=== PATIENT | female | born 1995 | race African-American/Black ===

== ENCOUNTER 2016-08-21 23:52 | Inpatient (IN) | payer SELFPAY ==
[~2016-08-21] VITALS: Ht 162.6 cm; Wt 74.8 kg
[2016-08-22] MEDS ORDERED: LACTATED RINGERS 1,000 ML IV SCH (00:02)
[2016-08-22] MEDS ORDERED: LIDOCAINE HCL 1% 20ML VIAL (Pyxis) INJ INFIL SCH (00:15)
[2016-08-22] MEDS ORDERED: NALOXONE HCL 0.4 MG/ML 1ML VIAL IM PRN (00:15)
[2016-08-22] MEDS ORDERED: CARBOPROST TROMETHAMINE 250 MCG/ML AMPUL IM PRN (00:15)
[2016-08-22] MEDS ORDERED: METHYLERGONOVINE MALEATE 0.2 MG/ML IM PRN ×2 (00:15→01:00)
[2016-08-22] MEDS: DEXT 5%/LR + PITOCIN 20UNITS/L 1,000 ML IV SCH ×2 (00:49→01:45)
[2016-08-22] MEDS ORDERED: DEXT 5%/LR + PITOCIN 20UNITS/L 1,000 ML IV SCH (00:59)
[2016-08-22] MEDS ORDERED: ACETAMINOPHEN WITH CODEINE 300/30MG TABLET PO PRN (01:00)
[2016-08-22] MEDS ORDERED: GLYCERIN/WITCH HAZEL LEAF MEDICATED PAD TOP PRN (01:00)
[2016-08-22] MEDS ORDERED: IBUPROFEN 800MG TABLET PO PRN (01:00)
[2016-08-22] MEDS ORDERED: LANOLIN OINT 0.25 GM TUBE TOP PRN (01:00)
[2016-08-22] MEDS ORDERED: IBUPROFEN 400MG TABLET PO PRN (01:00)
[2016-08-22] MEDS ORDERED: RHO(D) IMMUNE GLOBULIN 300 MCG/SYR IM PRN (01:00)
[2016-08-22 01:03] LABS: BASOPHILS % 0.5 % (0.0-2.0); EOSINOPHILS % 1.6 % (0.0-5.0); HEMATOCRIT. 32.1 % (36.0-48.0); HEMOGLOBIN. 10.8 g/dL (12.0-16.0); INR 0.9; LYMPHOCYTES % 25.1 % (20.0-50.0); MEAN CORPUSCULAR HEMOGLOBIN 28.3 pg (28.0-32.0); MEAN CORPUSCULAR HGB CONC 33.8 g/dL (31.0-37.0); MEAN CORPUSCULAR VOLUME 83.8 fL (81.0-99.0); MEAN PLATELET VOLUME 8.1 fl (7.4-10.4); MONOCYTES % 7.2 % (2.0-8.0); NEUTROPHILS % 65.6 % (40.0-76.0); PARTIAL THROMBOPLASTIN TIME 28.5 sec (24.0-34.0); PLATELET 182 x1000/uL (130-400); PROTHROMBIN TIME 9.4 sec; RED BLOOD CELL COUNT 3.83 mill/uL (4.2-5.4); RED CELL DISTRIBUTION WIDTH 15.2 % (11.6-14.6); WHITE BLOOD COUNT 5.7 x1000/uL (4.5-11.0)
[2016-08-22 02:00] VITALS: BP 128/76
[2016-08-22 06:00] VITALS: BP 113/61
[2016-08-22 06:52] LABS: HEPATITIS B SURFACE ANTIGEN NEGATIVE; RUBELLA IGG 105.6 IU/mL (4.99-10)
[2016-08-22 07:13] LABS: *AMPHETAMINES SCREEN URINE NEGATIVE (NEGATIVE); *BARBITURATES SCREEN URINE NEGATIVE (NEGATIVE); *BENZODIAZEPINES SCREEN URINE NEGATIVE (NEGATIVE); CANNABINOID URINE SCREEN NEGATIVE (NEGATIVE); ECSTASY MDMA SCREEN URINE NEGATIVE (NEGATIVE); METHADONE URINE SCREEN NEGATIVE (NEGATIVE); OPIATES URINE SCREEN NEGATIVE (NEGATIVE); PHENCYCLIDINE URINE SCREEN NEGATIVE (NEGATIVE)
[2016-08-22 07:35] VITALS: BP 100/67
[2016-08-22 08:24] LABS: *COCAINE SCREEN URINE PRESUMTIVE POSITIVE (NEGATIVE)
[2016-08-22] MEDS ORDERED: PRENATAL VIT/FE FUMARATE/FA TABLET PO SCH (09:00)
[2016-08-22 09:06] LABS: BASOPHILS % 0.4 % (0.0-2.0); EOSINOPHILS % 1.6 % (0.0-5.0); HEMATOCRIT. 30.8 % (36.0-48.0); HEMOGLOBIN. 10.3 g/dL (12.0-16.0); LYMPHOCYTES % 26.2 % (20.0-50.0); MEAN CORPUSCULAR HEMOGLOBIN 28.2 pg (28.0-32.0); MEAN CORPUSCULAR HGB CONC 33.5 g/dL (31.0-37.0); MEAN CORPUSCULAR VOLUME 84.1 fL (81.0-99.0); MONOCYTES % 8.7 % (2.0-8.0); NEUTROPHILS % 63.1 % (40.0-76.0); PLATELET 154 x1000/uL (130-400); RED BLOOD CELL COUNT 3.66 mill/uL (4.2-5.4); WHITE BLOOD COUNT 6.4 x1000/uL (4.5-11.0)
[2016-08-22 10:34] LABS: GLUCOSE URINE 2+ (NEGATIVE); KETONES URINE NEGATIVE (NEGATIVE); LEUKOCYTE ESTERASE URINE TRACE (NEGATIVE); NITRITE URINE NEGATIVE (NEGATIVE); OCCULT BLOOD URINE 3+ (NEGATIVE); PROTEIN URINE 1+ (NEGATIVE); SPECIFIC GRAVITY URINE 1.008 (1.005-1.030); UROBILINOGEN URINE 0.2 E.U./dL (0.2-1.0)
[2016-08-22 10:36] LABS: CLARITY URINE CLOUDY (CLEAR); COLOR URINE BLOODY (YELLOW)
[2016-08-22 10:37] LABS: RBC URINE TNTC /hpf (0-2)
[2016-08-22 10:41] LABS: WBC URINE 0-2 /hpf (0-2)
[2016-08-22 10:43] LABS: BACTERIA URINE TRACE; SQUAMOUS EPITHELIAL CELL URINE NONE SEEN /lpf (RARE/1+)
[2016-08-22] MEDS ORDERED: PENICILLIN G BENZATHINE 2,400,000 UNITS/4ML SYR IM NR ×2 (13:11→14:00)
[2016-08-22] MEDS ORDERED: DOCUSATE SODIUM 100MG CAPSULE PO SCH (21:00)
[2016-08-23] MEDS ORDERED: FERROUS SULFATE 325MG TABLET PO SCH (12:10)
[2016-08-29 10:08] LABS: COCAINE CONFIRMATION URINE Positive (.)
== END 2016-08-22 13:20 | disposition left against medical advice (07) | DRG 561 ==
LOC: OBSVTOIN 23:52 → L&D 23:52 → 8EST 08-22 02:00
PROVIDERS: ADMIT Obstetrics & Gynecology; ATTEND Obstetrics & Gynecology
DX: Z39.0 Encounter for care and examination of mother immediately after delivery (principal); D62 Acute posthemorrhagic anemia; Z53.21 Procedure and treatment not carried out due to patient leaving prior to being seen by health care provider; A53.0 Latent syphilis, unspecified as early or late
CPT/HCPCS: 36415; 36430; 80305; 80353; 81001; 85025; 85610; 85730; 86592; 86593; 86703; 86762; 86780; 86850; 86900; 87340; J0561; J2590; J7120

== ENCOUNTER 2024-09-12 14:16 | Emergency (ER) | payer MEDICAID ==
[~2024-09-12] VITALS: Ht 165.1 cm; Wt 80.0 kg
[2024-09-12 14:35] VITALS: TEMP 36.8; O2SAT 99
[2024-09-12] MEDS ORDERED: LEVO750T68 MT (16:24)
[2024-09-12] MEDS ORDERED: METR-167 MT (16:24)
[2024-09-12 16:58] VITALS: BP 121/80; PULSE 59; RESP 16; O2SAT 100
== END 2024-09-12 17:04 | disposition home or self-care (01) ==
LOC: ER 14:16
DX: S01.351A Open bite of right ear, initial encounter (principal); W50.3XXA Accidental bite by another person, initial encounter; Y93.89 Activity, other specified; Y92.89 Other specified places as the place of occurrence of the external cause; Y99.8 Other external cause status
CPT/HCPCS: 99283; Z7610; A4606

== ENCOUNTER 2025-05-26 04:38 | Emergency (ER) | payer MEDICAID ==
[~2025-05-26] VITALS: Ht 165.1 cm; Wt 69.0 kg
[~2025-05-26 04:38] MED LIST: LEVO750T68 MT; METR-167 MT
[2025-05-26 04:41] VITALS: O2SAT 99
[2025-05-26] MEDS: MORPHINE SULFATE 4 MG/ML INJ (FOR IV/IM USE) IV ONE ×2 (05:10→07:04)
[2025-05-26] MEDS: ONDANSETRON HCL 4MG/2ML INJ IV ONE (05:14)
[2025-05-26 05:40] LABS: CREATININE 0.8 mg/dL (0.6-1.0)
[2025-05-26 05:41] LABS: ETHANOL BLOOD 60 mg/dL (<10); UREA NITROGEN BLOOD 10 mg/dL (9-23)
[2025-05-26 05:47] LABS: BASOPHILS % 0.3 % (0.0-2.0); EOSINOPHILS % 0.0 % (0.0-5.0); HEMATOCRIT. 41.0 % (36.0-48.0); HEMOGLOBIN. 13.9 g/dL (12.0-16.0); LYMPHOCYTES % 18.9 % (20.0-50.0); MEAN PLATELET VOLUME 8.9 fl (7.4-10.4); MONOCYTES % 8.4 % (2.0-8.0); NEUTROPHILS % 72.4 % (40.0-76.0); PLATELET 185 x1000/uL (130-400); RED BLOOD CELL COUNT 4.23 mill/uL (4.2-5.4); RED CELL DISTRIBUTION WIDTH 13.5 % (11.6-14.6)
[2025-05-26 06:28] LABS: *AMPHETAMINES SCREEN URINE NEGATIVE (NEGATIVE); *BARBITURATES SCREEN URINE NEGATIVE (NEGATIVE)
[2025-05-26 06:31] LABS: *BENZODIAZEPINES SCREEN URINE NEGATIVE (NEGATIVE); *COCAINE SCREEN URINE NEGATIVE (NEGATIVE); CANNABINOID URINE SCREEN PRESUMPTIVE POSITIVE (NEGATIVE); ECSTASY MDMA SCREEN URINE NEGATIVE (NEGATIVE); METHADONE URINE SCREEN NEGATIVE (NEGATIVE); OPIATES URINE SCREEN NEGATIVE (NEGATIVE); PHENCYCLIDINE URINE SCREEN NEGATIVE (NEGATIVE)
[2025-05-26] MEDS: SODIUM CHLORIDE 0.9% 1,000 ML IV ONE (07:03)
[2025-05-26] MEDS: TETANUS, DIPHTHERIA, PERTUSSIS VAC/PF 0.5ML (>10YR OLD) IM ONE (07:05)
[2025-05-26 07:13] LABS: HCG SCREEN NEGATIVE
[2025-05-26] MEDS: IOHEXOL-300 100 ML BOTTLE ONE (08:01)
[2025-05-26] MEDS: PROPOFOL 200MG/20ML VIAL IV ONE ×2 (08:01→08:48)
[2025-05-26 08:03] VITALS: BP 127/72; PULSE 71; RESP 16; TEMP 37.1; O2SAT 100
[2025-05-26] MEDS ORDERED: ACET-2708 MT (10:07)
[2025-05-26] MEDS ORDERED: NAPR220C61 MT (10:07)
== END 2025-05-26 10:25 | disposition home or self-care (01) ==
LOC: ER 04:59
DX: S53.104A Unspecified dislocation of right ulnohumeral joint, initial encounter (principal); F17.200 Nicotine dependence, unspecified, uncomplicated; Y04.0XXA Assault by unarmed brawl or fight, initial encounter; Y93.89 Activity, other specified; Y92.89 Other specified places as the place of occurrence of the external cause; Y99.8 Other external cause status; Z20.822 Contact with and (suspected) exposure to COVID-19
CPT/HCPCS: 80305; 80048; 80320; 84703; 85025; 36415; 73060; 73070; 73090; 70450; 73201; 90715; 93005; 24600; 90471; 99152; 99291; Q9967; J2405; J2704; J2270; J7030; Z7610 ×2; A6449; G0480